=== PATIENT | female | born 1980 ===

== ENCOUNTER 2018-05-19 18:12 | Inpatient (IN) | payer OTHER ==
[2018-05-19 19:35] VITALS: BMI 38.2
[2018-05-19] MEDS ORDERED: Betamethasone Soluspan 30 mg/5mL Inj Susp IM ONE (20:05)
[2018-05-19] MEDS ORDERED: Magnesium Sul 40GM/1L SW 40 GM/1,000 ML ML IV ONE (20:07)
[2018-05-19] MEDS ORDERED: Magnesium Sulfate 4 gm/100 ml 4 GM/100 ML BAG IV ONE (20:07)
--- NOTE | 2018-05-19 20:23 | OBHP ---
Datetime: 05/19/2018 20:00 IP Adm Impression: , intrauterine ; No Active Labor; Intact Membranes IP Admit Plan: Admit to unit Admit Comment, IP Provider: 37yo G [id number] IUP at 25w sent from [facility] for shortened cx. No CTX. No VB. +FM POBGYNH: x 1 FT no complicatoins 8lb 9oz PMH: denies PSH: denies NKA PSoH: indira smoking ETOH drugs A: IUP at 25w shortened cervix/threatened PTL AMA - declined amino PLAN: spoke with Dr Torre...will admit - start MgSO4 neuroprophylaxis/Betamethasone for l radha maturity...spoke to pt about condition, management plan and trasnfer to [facility]. Her was pre sent. Agreed to treatment care: Dr Ra Zapata. chart rev'd Pelvic Type - PN: Not Done Extremities - PN: Normal Abdomen - PN: Normal Back - PN: Normal Lungs - PN: Normal Heart - PN: Normal Thyroid - PN: Normal Neurologic - PN: Normal HEENT - PN: Normal General - PN: Normal Presentation-Admit: Vertex FHR - Baseline A Provider: 140 Membranes, Provider: Intact Comments, ACOG Physical Exam: Pelvic not done...deferred/to be transferred Pool Provider: Negative IP Hx Assessment: The History has been Reviewed and is Current EGA AdmitDate IP: 25.6 IP Chief Complaint: Other NICHD Variability Prov Fetus A: Moderate 6-25bpm NICHD Accel Fetus A IP Provider: 10X10 FHR Category Provider Fetus A: Category I NICHD Decel Fetus A IP Provider: None
[2018-05-19 21:11] LABS: BASO % 0.2 % (0.0-2.0); EOS # 0.1 K/uL (0.0-0.7); EOS % 0.6 % (0.0-4.0); HEMOGLOBIN 13.1 g/dL (12.0-16.0); LYMPH # 1.6 K/uL (1.0-4.3); LYMPH % 14.6 % (20.0-40.0); MEAN CELL VOLUME 92.1 fl (81.0-99.0); MEAN CORPUSCULAR HEMOGLOBIN 31.5 pg (27.0-31.0); MEAN CORPUSCULAR HGB CONC 34.2 g/dL (33.0-37.0); MONO # 0.7 K/uL (0.0-0.8); MONO % 6.5 % (0.0-10.0); NEUT # 8.3 K/uL (1.8-7.0); NEUT % 78.1 % (50.0-75.0); NRBC % 0.1 % (0.0-0.0); RBC 4.15 Mil/uL (3.80-5.20); RED CELL DISTRIBUTION WIDTH 14.1 % (11.5-14.5); WHITE BLOOD COUNT 10.6 K/uL (4.8-10.8)
[2018-05-19 21:18] LABS: SQUAMOUS EPITHIAL 2 /hpf (0-5); URINE BILIRUBIN NEGATIVE (NEGATIVE); URINE BLOOD NEGATIVE (NEGATIVE); URINE CLARITY SLIGHTY-CLOUDY (Clear); URINE COLOR YELLOW (YELLOW); URINE GLUCOSE (UA) NEG (Normal); URINE LEUKOCYTE ESTERASE NEG Leu/uL (Negative); URINE PROTEIN NEGATIVE (NEGATIVE); URINE UROBILINOGEN 0.2-1.0 mg/dL (0.2-1.0)
[2018-05-19 21:52] VITALS: RESP 16; TEMP 98.9; O2SAT 99
[2018-05-20 02:01] VITALS: BP 130/74; PULSE 98
--- NOTE | 2018-05-20 08:31 | OBDCSUM ---
Datetime: 05/20/2018 08:30 Discharged to, Provider: Other Disch Instr Activity: Normal activity Disch Instr Diet: Regular Discharge Instructions, Provider: Routine instructions given Discharge Diagnosis, Provider: Labor Discharge Time: 05/19/2018 21:40 Disch Referrals: None Contraception discussed, Prov: Yes Disch Activity Restrictions: No exercising; Minimize walking; Minimize stair-climbing; No sexual act ivity; Nothing in vagina - [place], tampons, douche Discharge Comment, Provider: Transferred to [facility] Discharge Diagnosis Prov Other: Shortened cervix
== END 2018-05-19 21:45 | disposition short-term general hospital (02) | DRG 379 ==
LOC: H.EROB2 18:12 → H.L&D 20:05
PROVIDERS: ADMIT Obstetrics & Gynecology; ATTEND Obstetrics & Gynecology
PROC: 4A1HXCZ Monitoring of Products of Conception, Cardiac Rate, External Approach (ICD-10-PCS; principal; 2018-05-19)
DX: O60.02 Preterm labor without delivery, second trimester (principal); O26.872 Cervical shortening, second trimester; Z3A.25 25 weeks gestation of pregnancy; O09.522 Supervision of elderly multigravida, second trimester